=== PATIENT | female | born 1985 | race Asian ===

== ENCOUNTER 2020-07-02 20:40 | Emergency (ER) | payer OTHER, MEDICAID ==
[2020-07-03 00:10] VITALS: BP 107/71
== END 2020-07-03 00:10 | disposition home or self-care (01) ==
LOC: ED 20:40
DX: O9A.212 Injury, poisoning and certain other consequences of external causes complicating pregnancy, second trimester (principal); V49.59XA Passenger injured in collision with other motor vehicles in traffic accident, initial encounter; Y93.9 Activity, unspecified; Y92.413 State road as the place of occurrence of the external cause; Y99.8 Other external cause status
CPT/HCPCS: Q0092